=== PATIENT | male | born 1980 | race African-American/Black ===

== ENCOUNTER 2017-10-19 20:27 | Emergency (ER) | payer SELFPAY ==
[~2017-10-19] VITALS: Ht 185.4 cm; Wt 112.0 kg
[2017-10-19] MEDS ORDERED: METHYLPREDNISOLONE SOD SUCC 125 MG/2 ML VIAL IV STA (20:59)
[2017-10-19] MEDS ORDERED: EPINEPHRINE 1:1000 1 MG/ML AMP IM ONE (21:00)
[2017-10-19] MEDS ORDERED: DIPHENHYDRAMINE 50MG/ML VIAL IV ONE (21:00)
[2017-10-19 22:46] VITALS: BP 127/83
== END 2017-10-19 22:48 | disposition home or self-care (01) ==
LOC: ER 20:27
DX: T78.49XA Other allergy, initial encounter (principal); L50.0 Allergic urticaria; X58.XXXA Exposure to other specified factors, initial encounter; Y93.89 Activity, other specified; Y99.8 Other external cause status; Y92.89 Other specified places as the place of occurrence of the external cause
CPT/HCPCS: 96372; 96374; 96375; 99284; J0171; J1200; J2930

== ENCOUNTER 2017-10-24 23:09 | Emergency (ER) | payer SELFPAY ==
[~2017-10-24] VITALS: Ht 185.4 cm; Wt 106.0 kg
[2017-10-25 03:28] VITALS: BP 136/80
== END 2017-10-25 08:55 | disposition left against medical advice (07) ==
LOC: ER 23:13
DX: R50.9 Fever, unspecified (principal); Z53.21 Procedure and treatment not carried out due to patient leaving prior to being seen by health care provider

== ENCOUNTER 2019-07-24 06:02 | Emergency (ER) | payer MEDICAID ==
[~2019-07-24] VITALS: Ht 185.4 cm; Wt 94.0 kg
[2019-07-24] MEDS ORDERED: ALBUTEROL (0.083%) 2.5MG/3ML NEB HHN STA ×2 (06:38→08:30)
[2019-07-24] MEDS ORDERED: METHYLPREDNISOLONE SOD SUCC 125 MG/2 ML VIAL IV STA (06:38)
[2019-07-24] MEDS ORDERED: IPRATROPIUM BROMIDE (0.02%) 0.5MG/2.5ML NEB HHN STA (06:38)
[2019-07-24 06:59] LABS: BASOPHILS % 0.4 % (0.0-2.0); EOSINOPHILS % 1.8 % (0.0-5.0); HEMATOCRIT. 42.7 % (42.0-52.0); HEMOGLOBIN. 14.3 g/dL (14.0-18.0); LYMPHOCYTES % 19.9 % (20.0-50.0); MEAN CORPUSCULAR HEMOGLOBIN 29.1 pg (28.0-32.0); MEAN CORPUSCULAR VOLUME 86.9 fL (80.0-94.0); MEAN PLATELET VOLUME 9.7 fl (7.4-10.4); MONOCYTES % 7.2 % (2.0-8.0); NEUTROPHILS % 70.7 % (40.0-76.0); PLATELET 228 x1000/uL (130-400); RED BLOOD CELL COUNT 4.91 mill/uL (4.7-6.1); RED CELL DISTRIBUTION WIDTH 14.1 % (11.6-14.6)
[2019-07-24 07:05] LABS: CHLORIDE 106 mEq/L (98-107)
[2019-07-24 10:15] VITALS: BP 135/69
== END 2019-07-24 10:26 | disposition home or self-care (01) ==
LOC: ER 06:02
DX: J45.909 Unspecified asthma, uncomplicated (principal)
CPT/HCPCS: 36415; 71045; 80053; 83880; 84484; 85025; 93005; 94640; 94644; 96374; 99285; J2930; J7611; Z7610

== ENCOUNTER 2023-10-29 07:10 | Inpatient (IN) | payer MEDICAID, OTHER ==
[~2023-10-29] VITALS: Ht 185.4 cm; Wt 105.2 kg
[2023-10-29] MEDS ORDERED: KETOROLAC 60MG/2ML VIAL IM ONE (08:30)
[2023-10-29 11:50] LABS: CLARITY URINE CLEAR (CLEAR); COLOR URINE YELLOW (YELLOW); GLUCOSE URINE NEGATIVE (NEGATIVE); KETONES URINE NEGATIVE (NEGATIVE); LEUKOCYTE ESTERASE URINE NEGATIVE (NEGATIVE); NITRITE URINE NEGATIVE (NEGATIVE); OCCULT BLOOD URINE NEGATIVE (NEGATIVE); PROTEIN URINE TRACE (NEGATIVE); SPECIFIC GRAVITY URINE 1.024 (1.005-1.030)
[2023-10-29 12:12] LABS: MUCUS URINE 2+ /lpf (NONE/TRACE); SQUAMOUS EPITHELIAL CELL URINE FEW /lpf (RARE/1+)
[2023-10-29 12:13] LABS: WBC URINE 0-2 /hpf (0-2)
[2023-10-29 12:14] LABS: BACTERIA URINE NONE SEEN
[2023-10-29] MEDS ORDERED: CEFTRIAXONE 1GM PREMIX 50 ML IV SCH (17:45)
[2023-10-29] MEDS: CEFTRIAXONE 1,000 MG in DEXTROSE 5% WATER 50 ML IV SCH (18:56)
[2023-10-29] MEDS ORDERED: CEFTRIAXONE 1,000 MG in DEXTROSE 5% WATER 50 ML IV SCH (19:00)
[2023-10-29 21:21] VITALS: BP 125/81; PULSE 84; RESP 20; TEMP 98.1
[2023-10-30 00:48] LABS: HEMATOCRIT 40.8 % (42.0-52.0); HEMOGLOBIN 13.5 g/dL (14.0-18.0); MEAN CORPUSCULAR HEMOGLOBIN 29.1 pg (28.0-32.0); PLATELET 217 x1000/uL (130-400); RED BLOOD CELL COUNT 4.63 mill/uL (4.7-6.1); RED CELL DISTRIBUTION WIDTH 14.2 % (11.6-14.6); WHITE BLOOD COUNT 8.9 x1000/uL (4.5-11.0)
[2023-10-30 01:04] LABS: ALANINE AMINOTRANSFERASE 19 IU/L (10-49); ASPARTATE AMINOTRANSFERASE 16 IU/L (<34); BILIRUBIN TOTAL 0.4 mg/dL (0.1-1.0); CALCIUM 9.4 mg/dL (8.7-10.4); CARBON DIOXIDE 27 mEq/L (21-32); CHLORIDE 103 mEq/L (98-107); CREATININE 1.3 mg/dL (0.6-1.3); GLUCOSE 95 mg/dL (70-105); POTASSIUM 4.3 mEq/L (3.5-5.1); PROTEIN TOTAL 6.9 g/dL (6.0-8.3); SODIUM 137 mEq/L (136-145); UREA NITROGEN BLOOD 22 mg/dL (9-23)
[2023-10-30 01:57] VITALS: BP 125/81; PULSE 84; RESP 20; TEMP 98.1
[2023-10-30 04:00] VITALS: BP 115/77; PULSE 84; RESP 20; TEMP 98
[2023-10-30 08:00] VITALS: BP 124/79; PULSE 69; RESP 18; TEMP 97.5
[2023-10-30] MEDS ORDERED: NALOXONE HCL 0.4MG/ML VIAL IV PRN (11:00)
[2023-10-30 12:00] VITALS: BP 119/78; PULSE 67; RESP 18; TEMP 98.1
[2023-10-30] MEDS ORDERED: CEFTRIAXONE 1,000 MG in DEXTROSE 5% WATER 50 ML IV SCH (12:00)
[2023-10-30] MEDS ORDERED: POLYMYXIN B SULFATE 500000 UNITS/VIAL ONE (12:50)
[2023-10-30] MEDS ORDERED: LIDOCAINE HCL 1%/EPI 1:200,000 30 ML VIAL ONE (12:50)
[2023-10-30] MEDS ORDERED: CEFAZOLIN SODIUM 1000MG/VIAL ONE (13:28)
[2023-10-30] MEDS ORDERED: METOCLOPRAMIDE HCL 10MG/2ML VIAL ONE (13:28)
[2023-10-30] MEDS ORDERED: ONDANSETRON HCL 4MG/2ML INJ ONE (13:28)
[2023-10-30] MEDS ORDERED: PROPOFOL 200MG/20ML VIAL IV ONE (13:29)
[2023-10-30] MEDS ORDERED: FENTANYL CITRATE/PF 50MCG/ML 2ML VIAL ONE ×2 (13:29→13:44)
[2023-10-30] MEDS ORDERED: HYDROMORPHONE HCL/PF 2MG/ML CPJ IV PRN (14:45)
[2023-10-30] MEDS ORDERED: FENTANYL CITRATE/PF 50MCG/ML 2ML VIAL IV PRN (14:45)
[2023-10-30 16:00] VITALS: BP 108/77; PULSE 73; RESP 18; TEMP 96.6
[2023-10-30 20:00] VITALS: BP 130/69; PULSE 111; RESP 17; TEMP 98.8
[2023-10-30] MEDS: CEFTRIAXONE 1,000 MG in DEXTROSE 5% WATER 50 ML IV SCH (23:24)
[2023-10-30] MEDS: HYDROCODONE/ACETAMINOPHEN 5/325MG TABLET PO PRN (23:29)
[2023-10-31] VITALS: BP 130/69; PULSE 111; RESP 17; TEMP 98.8
[2023-10-31] MEDS: HYDROCODONE/ACETAMINOPHEN 5/325MG TABLET PO PRN ×2 (02:02→09:56)
[2023-10-31 04:00] VITALS: BP 119/70; PULSE 82; RESP 16; TEMP 98.5
[2023-10-31 08:00] VITALS: BP 134/77; PULSE 82; RESP 19; TEMP 97.5
[2023-10-31] MEDS ORDERED: HYDR-4001 MT (09:42)
[2023-10-31] MEDS ORDERED: CEPH500C2 MT (09:42)
[2023-10-31 09:56] VITALS: RESP 19
[2023-10-31 11:34] VITALS: BP 134/77; PULSE 82; TEMP 97.5; O2SAT 98
== END 2023-10-31 11:51 | disposition home or self-care (01) | DRG 483 ==
LOC: ER 07:10 → 6EST 11:54 → EDBEDREQTM 11:57 → EDBEDREQ 11:57
PROVIDERS: ADMIT Internal Medicine; ATTEND Internal Medicine
PROC: 0VQS0ZZ Repair Penis, Open Approach (ICD-10-PCS; principal; 2023-10-30)
PROC: 0VCS0ZZ Extirpation of Matter from Penis, Open Approach (ICD-10-PCS; 2023-10-30)
DX: S39.840A Fracture of corpus cavernosum penis, initial encounter (principal); Z91.013 Allergy to seafood; X58.XXXA Exposure to other specified factors, initial encounter
CPT/HCPCS: 36415; 72195; 76857; 80053; 81003; 85027; 99285; J0690; J0696; J1885; J2405; J2704; J2765; J3010; J3490; J7060

== ENCOUNTER 2024-10-17 07:31 | Emergency (ER) | payer MEDICAID, OTHER ==
[~2024-10-17] VITALS: Ht 185.4 cm; Wt 5.7 kg
[~2024-10-17 07:31] MED LIST: CEPH500C2 MT; HYDR-4001 MT
[2024-10-17 07:37] VITALS: BP 146/98; PULSE 82; RESP 16; TEMP 98; O2SAT 100
[2024-10-17] MEDS ORDERED: SULF1TAB48 MT (08:05)
== END 2024-10-17 08:28 | disposition home or self-care (01) ==
LOC: ER 08:18
DX: L30.9 Dermatitis, unspecified (principal); Z79.899 Other long term (current) drug therapy
CPT/HCPCS: 99283

== ENCOUNTER 2025-09-02 10:16 | Emergency (ER) | payer OTHER ==
[~2025-09-02] VITALS: Ht 185.4 cm; Wt 100.0 kg
[~2025-09-02 10:16] MED LIST changes: -CEPH500C2 MT; -HYDR-4001 MT; +SULF1TAB48 MT; +[UNRECOGNIZED DRUG - CODE] MC
[2025-09-02 10:20] VITALS: O2SAT 98
[2025-09-02 11:16] LABS: BASOPHILS % 0.7 % (0.0-2.0); EOSINOPHILS % 1.0 % (0.0-5.0); HEMATOCRIT. 46.5 % (42.0-52.0); HEMOGLOBIN. 15.0 g/dL (14.0-18.0); LYMPHOCYTES % 30.5 % (20.0-50.0); MEAN PLATELET VOLUME 10.0 fl (7.4-10.4); MONOCYTES % 5.8 % (2.0-8.0); NEUTROPHILS % 62.0 % (40.0-76.0); PLATELET 245 x1000/uL (130-400); RED BLOOD CELL COUNT 5.42 mill/uL (4.7-6.1); RED CELL DISTRIBUTION WIDTH 14.7 % (11.6-14.6)
[2025-09-02 11:36] LABS: CREATININE 1.1 mg/dL (0.6-1.3); UREA NITROGEN BLOOD 14 mg/dL (9-23)
[2025-09-02 11:38] LABS: ASPARTATE AMINOTRANSFERASE 27 IU/L (<34)
[2025-09-02 11:39] LABS: BILIRUBIN DIRECT 0.2 mg/dL (<=3.0); BILIRUBIN TOTAL 0.4 mg/dL (0.1-1.0); PROTEIN TOTAL 7.5 g/dL (6.0-8.3)
[2025-09-02 11:43] LABS: TROPONIN I HIGH SENSITIVITY < 4 ng/L (3.0-53)
[2025-09-02 12:08] LABS: CLARITY URINE TURBID (CLEAR); COLOR URINE YELLOW (YELLOW); GLUCOSE URINE NEGATIVE (NEGATIVE); KETONES URINE TRACE (NEGATIVE); LEUKOCYTE ESTERASE URINE NEGATIVE (NEGATIVE); NITRITE URINE NEGATIVE (NEGATIVE); OCCULT BLOOD URINE 1+ (NEGATIVE); PH URINE 6.0 (4.5-8.0); PROTEIN URINE 1+ (NEGATIVE); SPECIFIC GRAVITY URINE 1.033 (1.005-1.030); UROBILINOGEN URINE 1.0 E.U./dL (0.2-1.0)
[2025-09-02 12:09] VITALS: BP 131/78; PULSE 66; RESP 18; TEMP 36.7; O2SAT 99
[2025-09-02 12:24] LABS: *AMPHETAMINES SCREEN URINE NEGATIVE (NEGATIVE); *BARBITURATES SCREEN URINE NEGATIVE (NEGATIVE); *BENZODIAZEPINES SCREEN URINE NEGATIVE (NEGATIVE)
[2025-09-02 12:25] LABS: *COCAINE SCREEN URINE NEGATIVE (NEGATIVE); CANNABINOID URINE SCREEN NEGATIVE (NEGATIVE); ECSTASY MDMA SCREEN URINE NEGATIVE (NEGATIVE); METHADONE URINE SCREEN NEGATIVE (NEGATIVE); OPIATES URINE SCREEN NEGATIVE (NEGATIVE); PHENCYCLIDINE URINE SCREEN NEGATIVE (NEGATIVE)
[2025-09-02 13:27] LABS: INFLUENZA TYPE A Presumptive Negative (Pres. Neg.); INFLUENZA TYPE B Presumptive Negative (Pres. Neg.); RESPIRATORY SYNCYTIAL VIRUS Not Detected (Not Detectd)
[2025-09-02 13:39] LABS: WBC URINE 0-2 /hpf (0-2)
[2025-09-02 13:40] LABS: BACTERIA URINE 3+; RBC URINE 0-2 /hpf (0-2); SQUAMOUS EPITHELIAL CELL URINE NONE SEEN /lpf (RARE/1+); YEAST URINE NONE SEEN
[2025-09-02 13:41] LABS: AMORPHOUS SEDIMENT URINE 3+ /lpf
== END 2025-09-02 12:10 | disposition home or self-care (01) ==
LOC: ER 10:16
DX: R00.2 Palpitations (principal); F17.290 Nicotine dependence, other tobacco product, uncomplicated; Z98.890 Other specified postprocedural states; Z20.822 Contact with and (suspected) exposure to COVID-19; Z91.013 Allergy to seafood; Z79.899 Other long term (current) drug therapy
CPT/HCPCS: 36415; 71045; 80048; 80076; 80305; 80320; 81003; 83735; 84484; 85025; 87420; 87426; 87804; 93005; 99285; G0480